=== PATIENT | female | born 1965 | race American Indian/Alaskan Native ===

== ENCOUNTER 2016-11-12 02:46 | Emergency (ER) | payer BC ==
[2016-11-12 02:57] VITALS: BP 134/85
[2016-11-12] MEDS ORDERED: TYLENOL ONE (03:53)
[2016-11-12] MEDS ORDERED: TYLENOL PO ONE (03:59)
--- NOTE | 2016-11-12 04:47 | XRay Report ---
FINAL REPORT PROCEDURE: XR FOOT 3 RT TECHNIQUE: Right foot radiographs, AP, lateral, and oblique views. CPT 82516 HISTORY: RT FOOT PAIN COMPARISON: No prior studies are available for comparison. FINDINGS: Fracture (s) and/or Dislocation(s): None . Alignment: Normal . Joint space(s): Normal . Soft tissues: Normal . Bone mineralization: Normal . Foreign bodies: None . Calcaneal spurring: None . IMPRESSION: Normal Examination
--- NOTE | 2016-11-12 05:44 | Emergency Department Report ---
HPI - General Chief Complaint: Fall Time Seen by Provider: 11/12/16 05:34 - HPI HPI: 50-year-old female presents to ED complaining of right foot toe pain 1 day. Patient states she was playing around the house when she stubbed her toe on a piece of furniture. He states pain localized to the right third toe. Patient states she is able to move her toes appropriately. Patient denies loss of sensation. Patient denies fever/chills/nausea/vomiting/abdominal pain/chest pain/shortness of breath. ED Past Medical Hx - Past Medical History Previous Medical History?: Yes Hx Asthma: Yes - Surgical History Past Surgical History?: Yes Additional Surgical History: tubal ligation, cyst removal - Social History Smoking Status: Current Every Day Smoker Substance Use Type: None - Medications Home Medications: Home Medications Medication Instructions Recorded Confirmed Last Taken Type Ibuprofen [Motrin] 800 mg PO Q8H #20 tablet 04/01/14 08/15/14 08/15/14 Rx Cephalexin [Keflex] 500 mg PO BID #20 capsule 08/12/14 08/15/14 08/15/14 Rx Cephalexin [Keflex] 500 mg PO Q6H #30 capsule 08/16/14 Unknown Rx Doxycycline [Vibramycin CAP] 100 mg PO BID #14 capsule 08/16/14 Unknown Rx Acetaminophen/Codeine 1 tab PO Q6H PRN #15 tab 09/01/15 Unknown Rx [Acetaminophen-Codeine #3 TAB] Ibuprofen [Motrin 800 MG tab] 800 mg PO Q8HR PRN #30 tablet 11/12/16 Unknown Rx traMADol [Ultram 50 MG tab] 50 mg PO Q6HR PRN #10 tablet 11/12/16 Unknown Rx ED Review of Systems ROS: Stated complaint: RT FOOT TOE BROKEN Other details as noted in HPI Constitutional: denies: chills, fever Eyes: denies: eye pain, eye discharge, vision change ENT: denies: ear pain, throat pain Respiratory: denies: cough, shortness of breath, wheezing Cardiovascular: denies: chest pain, palpitations Endocrine: no symptoms reported Gastrointestinal: denies: abdominal pain, nausea, diarrhea Genitourinary: denies: urgency, dysuria, discharge Musculoskeletal: denies: back pain, joint swelling, arthralgia Skin: denies: rash, lesions Neurological: denies: headache, weakness, paresthesias Psychiatric: denies: anxiety, depression Hematological/Lymphatic: denies: easy bleeding, easy bruising Physical Exam - Physical Exam Vital Signs: Vital Signs 11/12/16 02:53 Temperature 97.8 F Pulse Rate 79 Respiratory 20 Rate Blood Pressure 134/85 O2 Sat by Pulse 100 Oximetry Physical Exam: GENERAL: Alert and oriented x3, no apparent distress, Normal Gait, atraumatic. HEAD: Head is normocephalic and a-traumatic. EYES: Extra ocular muscles are intact. Pupils are equal, round, and reactive to light and accommodation. LUNGS: Symetrical with respiration, No wheezing, no rales or crackles, CTAB. HEART: S1, S2 present, regular rate and rhythm without murmur, no rubs, no gallops. EXTREMITIES/MUSCULOSKELETAL: No cyanosis, clubbing, rash, lesions or edema. Full ROM bilaterally. LE Pulses 2+ bilaterally. LE 5+ strength bilaterally. Right foot full range of motion. Mild 1 cm contusion to third toe of right foot. Tenderness to palpation of the affected toe NEUROLOGIC: No focal Deficit, Cranial nerves II through XII are grossly intact. No loss of sensation, PSYCHIATRIC: Mood is congruent with affect, denies suicidal or homicidal ideations. SKIN: Warm and dry, No lesions, No ulceration or induration present. ED Course Vital Signs 11/12/16 02:53 Temperature 97.8 F Pulse Rate 79 Respiratory 20 Rate Blood Pressure 134/85 O2 Sat by Pulse 100 Oximetry ED Medical Decision Making - Radiology Data Radiology results: report reviewed, image reviewed FINAL REPORT PROCEDURE: XR FOOT 3 RT TECHNIQUE: Right foot radiographs, AP, lateral, and oblique views. CPT 88607 HISTORY: RT FOOT PAIN COMPARISON: No prior studies are available for comparison. FINDINGS: Fracture (s) and/or Dislocation(s): None . Alignment: Normal . Joint space(s): Normal . Soft tissues: Normal . Bone mineralization: Normal . Foreign bodies: None . Calcaneal spurring: None . IMPRESSION: Normal Examination Transcribed By: CO Dictated By: KATHLEEN TODD MD Electronically Authenticated By: KATHLEEN TODD MD Signed Date/Time: 11/12/16 0443 - Medical Decision Making 50-year-old female presents with right foot third toe contusion, ED course: Patient received 1000 mg of Tylenol. Foot x-ray ordered. Foot x-ray shows no fracture or dislocation or acute injury - see above Discussed findings with patient. Discussed the patient will follow up with primary care physician as needed. Discussed ice application to toe. Discussed medication prescribed as needed for pain. Vital signs are normal patient is anginal versus her distress or acute distress patient resting comfortably in room Critical care attestation.: If time is entered above; I have spent that time in minutes in the direct care of this critically ill patient, excluding procedure time. ED Disposition Clinical Impression: Toe contusion Qualifiers: Encounter type: initial encounter Toe: lesser toe Damage to nail status: without damage Laterality: right Qualified Code(s): S90.121A - Contusion of right lesser toe(s) without damage to nail, initial encounter Disposition: DISCHARGED TO HOME OR SELFCARE Is pt being admited?: No Does the pt Need Aspirin: No Condition: Stable Instructions: Foot Contusion (ED), Ice Pack Application (ED) Additional Instructions: Apply ice to the affected toe. Follow-up with her primary care doctor. Prescriptions: Ibuprofen [Motrin 800 MG tab] 800 mg PO Q8HR PRN #30 tablet PRN Reason: Pain traMADol [Ultram 50 MG tab] 50 mg PO Q6HR PRN #10 tablet PRN Reason: Pain Referrals: PRIMARY CARE, [Primary Care Provider] - 3-5 Days RIO PERRY MD [Referring] - 3-5 Days NICK SANDRA MD [Staff Physician] - 3-5 Days [facility] [Outside] - 3-5 Days Forms: Work/School Release Form(ED) Time of Disposition: 05:45
== END 2016-11-12 05:50 | disposition home or self-care (01) ==
LOC: ED 02:46
DX: S90.121A Contusion of right lesser toe(s) without damage to nail, initial encounter (principal); J45.909 Unspecified asthma, uncomplicated; F17.200 Nicotine dependence, unspecified, uncomplicated; W19.XXXA Unspecified fall, initial encounter; Y93.89 Activity, other specified; Y99.8 Other external cause status; Y92.009 Unspecified place in unspecified non-institutional (private) residence as the place of occurrence of the external cause

== ENCOUNTER 2017-08-23 09:10 | Outpatient (CLI) | payer BC ==
--- NOTE | 2017-08-24 10:32 | Mammography Report ---
BILATERAL DIGITAL SCREENING MAMMOGRAM with CAD: 08/23/17 09:10:00 CLINICAL: Routine screening. COMPARISON:09/17/15 and 12/16/08 FINDINGS: The breasts are heterogeneously dense, which may obscure small masses.Left upper outer asymmetry and architectural distortion and a right outer circumscribed asymmetry require additional imaging. No suspicious calcifications. IMPRESSION: Bilateral asymmetries asymmetry requiring further workup. BI-RADS CATEGORY: 0 -- Additional Imaging Evaluation Required RECOMMENDATION: Recall for bilateral lateralmedial and spot magnification views and bilateral breast ultrasound if needed. ACR BI-RADS MAMMOGRAPHIC CODES: 0 = Needs additional imaging evaluation; 1 = Negative; 2 = Benign; 3 = Probably benign; 4 = Suspicious; 5 = Malignant; 6 = Known biopsy-proven malignancy COMMENT: 1. Dense breast tissue, i.e., adenosis, fibrocystic changes, etc., may obscure an underlying neoplasm. 2. Approximately 10% of cancers are not detected with mammography. 3. A negative mammography report should not delay biopsy if a clinically suspicious mass is present. COMMENT: Patient follow-up letters are generated via our [employer] application.
== END 2017-08-23 09:11 | disposition home or self-care (01) ==
LOC: MAMMO 09:10
PROVIDERS: ATTEND Physician Assistant
DX: Z12.31 Encounter for screening mammogram for malignant neoplasm of breast (principal); J45.909 Unspecified asthma, uncomplicated; F17.200 Nicotine dependence, unspecified, uncomplicated
CPT/HCPCS: 77067

== ENCOUNTER 2018-11-05 09:41 | Outpatient (CLI) | payer OTHER ==
--- NOTE | 2018-11-05 14:10 | Mammography Report ---
BONE DEXA:11/05/18 09:41:00 CLINICAL: Postmenopausal. No comparison. TECHNIQUE: Two site bone DEXA performed on an Hologic scanner. FINDINGS: The average BMD of the lumbar spine L1-L4 is 1.015g/cm squared with a T-score of -1.2 and a Z-score of -0.3. The average BMD of the left hip is 1.015g/cm squared with a T-score of -0.1 and a Z-score of +0.3. IMPRESSION: 1. WHO classification: Osteopenia with increased fracture risk based on lumbar spine measurements. 2. WHO classification: Normal with average fracture risk based on left hip measurements. RECOMMENDATION: Clinical correlation and routine screening. DEFINITIONS: BMD = Bone Mineral Density T-score = BMD related to mean peak bone mass of young adult (mean expressed in Standard Deviation) Z-score = Age matched BMD expressed in SD World Health Organization (WHO) Diagnostic Criteria Normal T-score > -1 SD Osteopenia T-score between -1 and -2.4 SD Osteoporosis T-score -2.5 SD or below NOTE: BMD is not the only risk factor for fracture. One should also consider factors such as the patient's age, risk of falling, previous osteoporotic fracture, family history of osteoporotic fractures, current smoker, and low body weight. Z-scores are not calculated if >80 years of age.
== END 2018-11-05 09:42 | disposition home or self-care (01) ==
LOC: SPVWC 09:41
PROVIDERS: ATTEND Internal Medicine
DX: Z13.820 Encounter for screening for osteoporosis (principal); M85.88 Other specified disorders of bone density and structure, other site; J45.909 Unspecified asthma, uncomplicated; Z78.0 Asymptomatic menopausal state
CPT/HCPCS: 77080

== ENCOUNTER 2021-06-30 12:56 | Outpatient (CLI) | payer OTHER | END 2021-06-30 12:57 | disposition home or self-care (01) | LOC: PF 12:56 | PROVIDERS: ATTEND Internal Medicine | DX: Z02.71 Encounter for disability determination (principal) | CPT/HCPCS: 94060 ==